=== PATIENT | female | born 1990 | race Caucasian/White ===

== ENCOUNTER 2017-04-12 12:48 | Emergency (ER) | payer MEDICAID ==
[~2017-04-12] VITALS: Ht 170.2 cm; Wt 57.3 kg
[~2017-04-12 12:48] MED LIST: AMOXICILLIN 50500 MG PO; AMOXICILLIN 8751 TAB PO; CARAFATE 1GM1 G PO; CIPRO 500MG TA500 MG PO; COLACE 100100 MG/CAP PO; FLAGYL 250250 MG/TAB PO; GUAIATUSSIN AC120 ML PO; IBU600 MG PO; IBU800 M1 PO; MAKENA250 MG/ML IM; MARNATAL-F1 CAP PO; METRONIDAZOLE PO; NAPROSYN500 MG PO; NKDA; NO HOME MEDICATIONS; NORCO 325 MG-51 TAB PO; NORCO 325 MG-7.1 TAB PO; ORTHO TRI-CYCLE1 TAB PO; PERCOCET 325 MG1 TA2 PO; PHENERGAN 25 TA25 MG PO; PRENATAL VITAMI1 TA5 PO; PRENATAL1 TA1 PO; PROTONIX 40MG T40 MG PO; PYRIDIUM200 M1 PO; TETRACYCLINE PO; TUSS PO; ULTRAM 50MG TAB50 MG PO; VALTREX 50500 MG/TAB PO; ZANTAC150 MG PO; ZITHROMAX Z PA250 MG PO; ZOFRAN ODT4 MG PO; [UNRECOGNIZED DRUG - OTHER]; [UNRECOGNIZED DRUG - OTHER] PO
[2017-04-12 12:49] VITALS: BP 122/78; TEMP 98.6
[2017-04-12] MEDS ORDERED: PREDNISONE20 MG PO (15:01)
[2017-04-12 15:14] VITALS: PULSE 96
== END 2017-04-12 15:14 | disposition home or self-care (01) ==
LOC: COL.ER 12:48
DX: J20.9 Acute bronchitis, unspecified (principal); F17.210 Nicotine dependence, cigarettes, uncomplicated
CPT/HCPCS: J1885

== ENCOUNTER 2017-08-03 18:20 | Emergency (ER) | payer MEDICAID ==
[~2017-08-03] VITALS: Ht 170.2 cm; Wt 56.8 kg
[~2017-08-03 18:20] MED LIST changes: +PREDNISONE20 MG PO
[2017-08-03 18:24] VITALS: BP 109/65; TEMP 99.1
[2017-08-03] MEDS ORDERED: ZITHROMAX Z PA250 MG PO (18:47)
[2017-08-03] MEDS ORDERED: PROAIR HFA0.09 MG/AC IH (18:47)
[2017-08-03 18:51] VITALS: PULSE 95
== END 2017-08-03 18:50 | disposition home or self-care (01) ==
LOC: COL.ER 18:20
DX: J40 Bronchitis, not specified as acute or chronic (principal); F17.210 Nicotine dependence, cigarettes, uncomplicated

== ENCOUNTER 2017-09-27 16:29 | Emergency (ER) | payer MEDICAID ==
[~2017-09-27] VITALS: Ht 167.6 cm; Wt 59.0 kg
[~2017-09-27 16:29] MED LIST changes: +PROAIR HFA0.09 MG/AC IH
[2017-09-27 16:31] VITALS: BP 107/72; TEMP 98.5
[2017-09-27] MEDS ORDERED: FLEXERIL 1010 MG/TAB PO (17:16)
[2017-09-27 17:39] VITALS: PULSE 70
== END 2017-09-27 17:40 | disposition home or self-care (01) ==
LOC: COL.ER 16:29
DX: R07.89 Other chest pain (principal); F17.210 Nicotine dependence, cigarettes, uncomplicated
CPT/HCPCS: J1885

== ENCOUNTER 2018-06-22 15:14 | Emergency (ER) | payer MEDICAID ==
[~2018-06-22] VITALS: Ht 167.6 cm; Wt 58.2 kg
[~2018-06-22 15:14] MED LIST changes: +FLEXERIL 1010 MG/TAB PO
[2018-06-22 15:18] VITALS: TEMP 99.1
[2018-06-22 15:30] LABS: COLLECTION METHOD CLEAN CATCH
[2018-06-22 15:41] LABS: MUCOUS Present /lpf; PH 5 (5-8); SQUAMOUS EPITHELIAL 0-2 /hpf; URINE APPEARANCE Clear; URINE BACTERIA None Seen /hpf; URINE BILIRUBIN Negative (NEGATIVE); URINE BLOOD Negative (NEGATIVE); URINE COLOR Yellow; URINE GLUCOSE Negative (NEGATIVE); URINE KETONE Negative (NEGATIVE); URINE LEUKOCYTE ESTERASE Negative (NEGATIVE); URINE NITRATE Negative (NEGATIVE); URINE PROTEIN(semi-quant) Negative (NEGATIVE); URINE RBC 0-2 /hpf
[2018-06-22 17:36] LABS: BASO % 0.5 % (0.0-2.0); EOS # 0.2 (0.0-0.7); EOS % 2.9 % (0-4.0); GRAN # 3.5 (1.4-6.5); GRAN % 45.1 % (42.2-75.2); HEMATOCRIT 38.2 % (37.0-47.0); HEMOGLOBIN 13.2 g/dl (12.5-16.0); LYMPH # 3.4 (1.2-3.4); MEAN CELL VOLUME 86 fl (80.0-100.0); MEAN CORPUSCULAR HEMOGLOBIN 30 pg (27.0-31.0); MEAN CORPUSCULAR HGB CONC 35 g/dl (33.0-37.0); MONO # 0.7 (0.1-0.6); MONO % 8.4 % (1.7-9.3); PLATELET COUNT 191 K/mm3 (130-400); RED BLOOD COUNT 4.44 M/mm3 (4.10-5.30); REDCELL DISTRIBUTION WIDTH-CV 12.3 % (11.5-14.5)
[2018-06-22 17:45] LABS: ALANINE AMINOTRANSFERASE 23 U/L (9-52); ALKALINE PHOSPHATASE 29 U/L (50-136); ANION GAP 10 mmol/L (7-16); AST,SGOT 15 U/L (15-37); BILIRUBIN,TOTAL 0.2 mg/dL (0.0-1.0); BLOOD UREA NITROGEN 15 mg/dL (7-17); CALCIUM 8.5 mg/dL (8.4-10.2); CARBON DIOXIDE 27 mmol/L (22-30); CHLORIDE 103 mmol/L (98-107); CREATININE, serum 0.72 mg/dL (0.52-1.25); GLUCOSE 76 mg/dL (74-106); SODIUM 140 mmol/L (137-145); TOTAL PROTEIN 7.1 gm/dL (6.4-8.2)
[2018-06-22 17:54] LABS: C-REACTIVE PROTEIN < 0.5 mg/dL (0.0-0.9)
[2018-06-22] MEDS ORDERED: FLAGYL500 MG PO (18:55)
[2018-06-22] MEDS ORDERED: ULTRAM 50MG TAB50 MG PO (18:55)
[2018-06-22 19:16] VITALS: BP 121/67; PULSE 75
[2018-06-23] MEDS ORDERED: ZITHROMAX 250M250 MG PO (06:59)
== END 2018-06-22 19:16 | disposition home or self-care (01) ==
LOC: COL.ER 15:14
PROVIDERS: Emergency Medicine; Nurse Practitioner
DX: R10.31 Right lower quadrant pain (principal); N76.0 Acute vaginitis; F17.210 Nicotine dependence, cigarettes, uncomplicated
CPT/HCPCS: J1170; J7030

== ENCOUNTER 2018-07-11 16:54 | Emergency (ER) | payer MEDICAID ==
[~2018-07-11] VITALS: Ht 170.2 cm; Wt 57.7 kg
[~2018-07-11 16:54] MED LIST changes: +FLAGYL500 MG PO; +ZITHROMAX 250M250 MG PO
[2018-07-11 17:09] VITALS: TEMP 99.1
[2018-07-11 18:38] LABS: COLLECTION METHOD CLEAN CATCH
[2018-07-11 18:41] LABS: BASO % 0.4 % (0.0-2.0); EOS # 0.2 (0.0-0.7); EOS % 2.4 % (0-4.0); GRAN # 2.8 (1.4-6.5); GRAN % 40.5 % (42.2-75.2); HEMATOCRIT 37.5 % (37.0-47.0); HEMOGLOBIN 13.1 g/dl (12.5-16.0); LYMPH # 3.4 (1.2-3.4); LYMPH % 48.5 % (20.0-51.0); MEAN CELL VOLUME 86 fl (80.0-100.0); MEAN CORPUSCULAR HEMOGLOBIN 30 pg (27.0-31.0); MEAN CORPUSCULAR HGB CONC 35 g/dl (33.0-37.0); MEAN PLATELET VOLUME 10.2 fl (7.4-10.4); MONO # 0.6 (0.1-0.6); MONO % 7.9 % (1.7-9.3); PLATELET COUNT 202 K/mm3 (130-400); RED BLOOD COUNT 4.36 M/mm3 (4.10-5.30); REDCELL DISTRIBUTION WIDTH-CV 12.2 % (11.5-14.5)
[2018-07-11 18:46] LABS: MUCOUS Present /lpf; PH 5 (5-8); SQUAMOUS EPITHELIAL 0-2 /hpf; URINE APPEARANCE Clear; URINE BACTERIA None Seen /hpf; URINE BILIRUBIN Negative (NEGATIVE); URINE BLOOD Negative (NEGATIVE); URINE COLOR Yellow; URINE GLUCOSE Negative (NEGATIVE); URINE KETONE Negative (NEGATIVE); URINE LEUKOCYTE ESTERASE Negative (NEGATIVE); URINE NITRATE Negative (NEGATIVE); URINE PROTEIN(semi-quant) Negative (NEGATIVE); URINE RBC 0-2 /hpf; URINE UROBILINOGEN >=4.0 mg/dL (NEGATIVE)
[2018-07-11 18:52] LABS: ALBUMIN 4.1 gm/dL (3.5-5.0); BILIRUBIN,TOTAL 0.4 mg/dL (0.0-1.0); C-REACTIVE PROTEIN 0.5 mg/dL (0.0-0.9); CALCIUM 8.9 mg/dL (8.4-10.2); CREATININE, serum 0.81 mg/dL (0.52-1.25); POTASSIUM 3.9 mmol/L (3.4-5.0); TOTAL PROTEIN 7.3 gm/dL (6.4-8.2)
[2018-07-11 20:46] VITALS: BP 103/75; PULSE 60
== END 2018-07-11 20:48 | disposition home or self-care (01) ==
LOC: COL.ER 16:54
PROVIDERS: Family Medicine
DX: R10.31 Right lower quadrant pain (principal)
CPT/HCPCS: J7030; Q9967

== ENCOUNTER 2019-01-06 09:02 | Emergency (ER) | payer MEDICAID ==
[~2019-01-06] VITALS: Ht 170.2 cm; Wt 63.6 kg
[2019-01-06 09:11] VITALS: BP 122/60
[2019-01-06 11:20] VITALS: PULSE 65; TEMP 98.5
== END 2019-01-06 11:20 | disposition home or self-care (01) ==
LOC: COL.ER 09:02
DX: J06.9 Acute upper respiratory infection, unspecified (principal); Z87.891 Personal history of nicotine dependence

== ENCOUNTER 2019-11-18 16:17 | Emergency (ER) | payer MEDICAID ==
[~2019-11-18] VITALS: Ht 170.2 cm; Wt 61.4 kg
[2019-11-18 16:28] VITALS: BP 114/55; PULSE 69
[2019-11-18] MEDS ORDERED: AMOXICILLIN 50500 MG PO (16:58)
[2019-11-18 18:13] VITALS: TEMP 97.8
== END 2019-11-18 17:55 | disposition home or self-care (01) ==
LOC: COL.ER 16:17
DX: J32.9 Chronic sinusitis, unspecified (principal); Z87.891 Personal history of nicotine dependence; Z88.1 Allergy status to other antibiotic agents; Z88.8 Allergy status to other drugs, medicaments and biological substances

== ENCOUNTER 2019-12-02 05:51 | Emergency (ER) | payer MEDICAID ==
[~2019-12-02] VITALS: Ht 170.2 cm; Wt 65.9 kg
[2019-12-02 05:57] VITALS: BP 113/76; PULSE 111
[2019-12-02 06:41] LABS: BASO % 0.3 % (0.0-2.0); EOS % 0.3 % (0-4.0); GRAN # 2.4 (1.4-6.5); GRAN % 70.9 % (42.2-75.2); HEMATOCRIT 37.4 % (37.0-47.0); HEMOGLOBIN 12.9 g/dl (12.5-16.0); LYMPH # 0.5 (1.2-3.4); LYMPH % 13.5 % (20.0-51.0); MEAN CELL VOLUME 85 fl (80.0-100.0); MEAN CORPUSCULAR HEMOGLOBIN 30 pg (27.0-31.0); MEAN CORPUSCULAR HGB CONC 35 g/dl (33.0-37.0); MEAN PLATELET VOLUME 9.9 fl (7.4-10.4); MONO # 0.5 (0.1-0.6); MONO % 14.7 % (1.7-9.3); PLATELET COUNT 167 K/mm3 (130-400); RED BLOOD COUNT 4.38 M/mm3 (4.10-5.30); REDCELL DISTRIBUTION WIDTH-CV 11.9 % (11.5-14.5)
[2019-12-02 06:53] LABS: ALANINE AMINOTRANSFERASE 17 U/L (9-52); ALBUMIN 4.1 gm/dL (3.5-5.0); ALKALINE PHOSPHATASE 45 U/L (50-136); ANION GAP 9 mmol/L (7-16); AST,SGOT 19 U/L (15-37); BILIRUBIN,TOTAL 0.4 mg/dL (0.0-1.0); BLOOD UREA NITROGEN 9 mg/dL (7-17); CALCIUM 8.5 mg/dL (8.4-10.2); CARBON DIOXIDE 21 mmol/L (22-30); CHLORIDE 108 mmol/L (98-107); CREATININE, serum 0.61 (0.52-1.25); GLUCOSE 94 mg/dL (74-106); LIPASE 56 U/L (23-300); POTASSIUM 3.8 mmol/L (3.4-5.0); SODIUM 138 mmol/L (137-145); TOTAL PROTEIN 7.3 gm/dL (6.4-8.2)
[2019-12-02 06:55] LABS: C-REACTIVE PROTEIN < 0.5 mg/dL (0.0-0.9)
[2019-12-02] MEDS ORDERED: TAMIFLU 75MG75 MG PO (07:11)
[2019-12-02 07:16] LABS: COLLECTION METHOD CLEAN CATCH
[2019-12-02 07:21] LABS: MUCOUS Present /lpf; PH 6 (5-8); SQUAMOUS EPITHELIAL 0-2 /hpf; URINE APPEARANCE Clear; URINE BACTERIA Rare /hpf; URINE BILIRUBIN Negative (NEGATIVE); URINE BLOOD Negative (NEGATIVE); URINE COLOR Yellow; URINE GLUCOSE Negative (NEGATIVE); URINE KETONE 1+ (NEGATIVE); URINE LEUKOCYTE ESTERASE Negative (NEGATIVE); URINE NITRATE Negative (NEGATIVE); URINE PROTEIN(semi-quant) Negative (NEGATIVE); URINE RBC 0-2 /hpf; URINE UROBILINOGEN >=4.0 mg/dL (NEGATIVE)
[2019-12-02 07:54] VITALS: TEMP 98.6
== END 2019-12-02 07:55 | disposition home or self-care (01) ==
LOC: COL.ER 05:51
PROVIDERS: Emergency Medicine
DX: J11.1 Influenza due to unidentified influenza virus with other respiratory manifestations (principal)
CPT/HCPCS: J7030

== ENCOUNTER → 2020-03-03 | Emergency (ER) | payer MEDICAID ==
[~2020-03-03] VITALS: Ht 170.2 cm; Wt 68.2 kg
[~2020-03-03] MED LIST changes: +MACROBID 1100 MG/CAP PO; +TAMIFLU 75MG75 MG PO
[2020-03-03 10:30] VITALS: BP 116/72; TEMP 99.3
[2020-03-03 11:05] LABS: COLLECTION METHOD CLEAN CATCH
[2020-03-03 11:08] LABS: BASO % 0.1 % (0.0-2.0); EOS % 0.4 % (0-4.0); GRAN # 5.7 (1.4-6.5); GRAN % 68.6 % (42.2-75.2); HEMATOCRIT 40.2 % (37.0-47.0); HEMOGLOBIN 14.2 g/dl (12.5-16.0); LYMPH % 23.6 % (20.0-51.0); MEAN CELL VOLUME 84 fl (80.0-100.0); MEAN CORPUSCULAR HEMOGLOBIN 30 pg (27.0-31.0); MEAN CORPUSCULAR HGB CONC 35 g/dl (33.0-37.0); MEAN PLATELET VOLUME 9.9 fl (7.4-10.4); MONO # 0.6 (0.1-0.6); MONO % 7.2 % (1.7-9.3); PLATELET COUNT 235 K/mm3 (130-400); RED BLOOD COUNT 4.81 M/mm3 (4.10-5.30); REDCELL DISTRIBUTION WIDTH-CV 11.7 % (11.5-14.5)
[2020-03-03 11:19] LABS: ALBUMIN 4.8 gm/dL (3.5-5.0); BILIRUBIN,TOTAL 0.7 mg/dL (0.0-1.0); CALCIUM 9.6 mg/dL (8.4-10.2); CREATININE, serum 0.58 (0.52-1.25); POTASSIUM 3.7 mmol/L (3.4-5.0); TOTAL PROTEIN 8.7 gm/dL (6.4-8.2)
[2020-03-03 11:24] LABS: MUCOUS Present /lpf; PH 5 (5-8); URINE APPEARANCE Cloudy; URINE BACTERIA Rare /hpf; URINE BILIRUBIN Negative (NEGATIVE); URINE BLOOD 3+ (NEGATIVE); URINE COLOR Yellow; URINE GLUCOSE Negative (NEGATIVE); URINE KETONE 1+ (NEGATIVE); URINE LEUKOCYTE ESTERASE 1+ (NEGATIVE); URINE NITRATE Negative (NEGATIVE); URINE PROTEIN(semi-quant) Negative (NEGATIVE); URINE UROBILINOGEN Negative (NEGATIVE)
[2020-03-03 13:13] VITALS: PULSE 80
== END ==
LOC: COL.ER 10:24
PROVIDERS: Nurse Practitioner
DX: O20.0 Threatened abortion (principal); O23.41 Unspecified infection of urinary tract in pregnancy, first trimester; Z3A.01 Less than 8 weeks gestation of pregnancy

== ENCOUNTER 2020-05-10 07:48 | Emergency (ER) | payer MEDICAID ==
[~2020-05-10] VITALS: Ht 170.2 cm; Wt 68.2 kg
[2020-05-10 07:54] VITALS: TEMP 98.1
[2020-05-10 08:37] LABS: COLLECTION METHOD CLEAN CATCH
[2020-05-10 08:46] LABS: MUCOUS Present /lpf; PH 8 (5-8); SQUAMOUS EPITHELIAL 0-2 /hpf; URINE APPEARANCE Clear; URINE BACTERIA Rare /hpf; URINE BILIRUBIN Negative (NEGATIVE); URINE BLOOD Negative (NEGATIVE); URINE COLOR Yellow; URINE GLUCOSE Negative (NEGATIVE); URINE KETONE Negative (NEGATIVE); URINE LEUKOCYTE ESTERASE Negative (NEGATIVE); URINE NITRATE Negative (NEGATIVE); URINE PROTEIN(semi-quant) Negative (NEGATIVE); URINE RBC 0-2 /hpf; URINE UROBILINOGEN Negative (NEGATIVE)
[2020-05-10 10:47] VITALS: BP 100/60; PULSE 88
== END 2020-05-10 10:35 | disposition home or self-care (01) ==
LOC: COL.ER 07:48
PROVIDERS: Physician Assistant
DX: O26.892 Other specified pregnancy related conditions, second trimester (principal); R51 Headache; Z3A.17 17 weeks gestation of pregnancy
CPT/HCPCS: J1200; J7030

== ENCOUNTER 2020-08-13 17:37 | Outpatient (CLI) | payer MEDICAID ==
[~2020-08-13] VITALS: Ht 167.6 cm; Wt 78.6 kg
[2020-08-13 17:39] VITALS: BP 113/66; PULSE 89; TEMP 97.6
--- NOTE | 2020-08-13 17:43 | NUR ---
FHR tachycardia noted and movement noted on monitor. Patient denies feeling movement. Report to Dr. Murray that she was not feeling movement. Patient given juice.
--- NOTE | 2020-08-13 17:54 | NUR ---
Patient ambulatory to unit accompanied by sister. Patient came via wheelchair and seems to be uncomfortable. Patient states she has been shelbie since 0900. Patient denies any leaking of fluid or vaginal bleeding but states she is not feeling the baby move at much today. FHR and Contraction monitors placed and explained. Patient has hx of labor and deliveries. SVE by Bernadine Geronimo RN /. Assessment completed. Dr. Murray at nurses station and reviews strip since patient arrives. Order to continue with routine labor check.
[2020-08-13 18:15] VITALS: BP 111/61; PULSE 86
[2020-08-13 18:30] VITALS: BP 113/64; PULSE 93
[2020-08-13 19:00] VITALS: BP 127/72; PULSE 91
== END 2020-08-13 19:10 | disposition home or self-care (01) ==
LOC: LDRO 17:37
DX: O62.9 Abnormality of forces of labor, unspecified (principal); O60.03 Preterm labor without delivery, third trimester; Z3A.31 31 weeks gestation of pregnancy; Z87.891 Personal history of nicotine dependence

== ENCOUNTER 2020-09-11 17:16 | Outpatient (CLI) | payer MEDICAID ==
[~2020-09-11] VITALS: Ht 167.6 cm; Wt 83.6 kg
--- NOTE | 2020-09-11 17:20 | NUR ---
1720- 35.3, G5L3 patient arrives on unit from clinic for extended monitoring, serial blood pressure, and lab. Patient ambulatory to LDR6. Oriented to room and instructerd to luiza kendall. 1725- This RN at bedside. EFM explained and placed. Patient reports irregular contractions, and decreased movement. Denies any LOF, or VB. VS obtained. Assessment completed. 1740- Patient up to bathroom to void. Clean cath UA collected. 1745- SVE by this RN . See flow chart. 1755- FHR tracing intermittently. EFM adjusted. 1805- Lab at bedside.
[2020-09-11 17:33] VITALS: BP 126/84; PULSE 83; TEMP 98.8
[2020-09-11 17:51] LABS: COLLECTION METHOD CLEAN CATCH
[2020-09-11] MEDS ORDERED: PRENATAL TABLET PO (17:56)
[2020-09-11] MEDS ORDERED: SLOW FE142 MG PO (17:57)
[2020-09-11 18:00] VITALS: BP 135/75; PULSE 75
[2020-09-11 18:02] LABS: MUCOUS Present /lpf; PH 5 (5-8); SQUAMOUS EPITHELIAL 0-2 /hpf; URINE APPEARANCE Clear; URINE BACTERIA None Seen /hpf; URINE BILIRUBIN Negative (NEGATIVE); URINE BLOOD Negative (NEGATIVE); URINE COLOR Yellow; URINE GLUCOSE Negative (NEGATIVE); URINE KETONE Negative (NEGATIVE); URINE LEUKOCYTE ESTERASE Negative (NEGATIVE); URINE NITRATE Negative (NEGATIVE); URINE PROTEIN(semi-quant) Negative (NEGATIVE); URINE RBC 0-2 /hpf; URINE UROBILINOGEN Negative (NEGATIVE); URINE WBC 0-2 /hpf
[2020-09-11] MEDS ORDERED: MAKENA250 MG/1 M IM (18:05)
[2020-09-11 18:22] LABS: BASO % 0.1 % (0.0-2.0); EOS % 0.3 % (0-4.0); GRAN # 5.7 (1.4-6.5); GRAN % 61.6 % (42.2-75.2); HEMOGLOBIN 10.6 g/dl (12.5-16.0); LYMPH # 2.7 (1.2-3.4); LYMPH % 28.9 % (20.0-51.0); MEAN CELL VOLUME 86 fl (80.0-100.0); MEAN CORPUSCULAR HEMOGLOBIN 29 pg (27.0-31.0); MEAN CORPUSCULAR HGB CONC 33 g/dl (33.0-37.0); MEAN PLATELET VOLUME 11.3 fl (7.4-10.4); MONO # 0.8 (0.1-0.6); MONO % 8.8 % (1.7-9.3); PLATELET COUNT 201 K/mm3 (130-400); RED BLOOD COUNT 3.71 M/mm3 (4.10-5.30)
[2020-09-11 18:29] LABS: ALBUMIN 3.3 gm/dL (3.5-5.0); BILIRUBIN,TOTAL 0.3 mg/dL (0.0-1.0); CALCIUM 8.4 mg/dL (8.4-10.2); CREATININE, serum 0.56 (0.52-1.25); POTASSIUM 3.7 mmol/L (3.4-5.0); TOTAL PROTEIN 6.6 gm/dL (6.4-8.2)
[2020-09-11 18:30] VITALS: BP 121/74; PULSE 83
[2020-09-11 18:45] VITALS: BP 116/76; PULSE 80
--- NOTE | 2020-09-11 18:52 | NUR ---
1845- PT UP TO BATHROOM. 1849- DR. ROB NOTIFIED OF PT ARRIVAL AND LABS, SEE PHYSICIAN NOTIFICATION. PT MAY DC HOME PER DR. ROB. 1850- PT STATES SHE IS FEELING SOME OF HER CONTRACTIONS. SVE RECHECKED AND WAS UNCHANGED. 1851- PT CHANGING INTO STREET [employer] WHILE DISCHARGE PAPERWORK PREPARED.
--- NOTE | 2020-09-11 19:08 | NUR ---
DISCHARGE INSTRUCTIONS REVIEWED WITH PT, QUESTIONS ENCOURAGED AND ANSWERED, UNDERSTANDING VERBALIZED. PT OFF THE UNIT AMBULATORY FOR HOME.
== END 2020-09-11 19:08 | disposition home or self-care (01) ==
LOC: LDRO 17:16 → LDR 17:16 → LDRO 19:08
PROVIDERS: Obstetrics & Gynecology
DX: O62.9 Abnormality of forces of labor, unspecified (principal); O13.3 Gestational [pregnancy-induced] hypertension without significant proteinuria, third trimester; O36.8130 Decreased fetal movements, third trimester, not applicable or unspecified; Z3A.35 35 weeks gestation of pregnancy; Z91.410 Personal history of adult physical and sexual abuse
CPT/HCPCS: OP

== ENCOUNTER 2020-09-27 11:16 | Inpatient (IN) | payer MEDICAID ==
[2020-09-27] VITALS (19 sets, daily range): BP systolic 128–170; BP diastolic 65–99; PULSE 53–81; TEMP 97.7–99.2
[~2020-09-27] VITALS: Ht 170.2 cm; Wt 85.9 kg
[~2020-09-27 11:16] MED LIST changes: +MAKENA250 MG/1 M IM; +PRENATAL TABLET PO; +SLOW FE142 MG PO
--- NOTE | 2020-09-27 11:24 | NUR ---
1124-G5L3 [address] Mcarthur to LR 4 from office after SVE in office , MARGARITA. Patient with history of labor x3. Has been recieving Sandra Inj for this. 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 BP elevated on office visit 152/100, 130's/80's here. BLE with +1 edema. SVE 2 per this RN at this time. 1152-Updated Dr. Murray, see MD notification. 1230-Consents reviewed and signed, IV to left forearm, blood collected and sent to lab per MD orders. LR infsuing, see EMAR. Updated on plan of care and safety.
[2020-09-27] MEDS ORDERED: ZOVIRAX400 MG (11:44)
--- NOTE | 2020-09-27 12:36 | NUR ---
Patient refuses Covid swab at this time.
[2020-09-27 12:50] LABS: COLLECTION METHOD CLEAN CATCH
[2020-09-27 12:58] LABS: BASO % 0.3 % (0.0-2.0); EOS % 0.1 % (0-4.0); GRAN # 4.8 (1.4-6.5); GRAN % 66.4 % (42.2-75.2); HEMOGLOBIN 12.6 g/dl (12.5-16.0); LYMPH # 1.9 (1.2-3.4); LYMPH % 26.5 % (20.0-51.0); MEAN CELL VOLUME 84 fl (80.0-100.0); MEAN CORPUSCULAR HEMOGLOBIN 28 pg (27.0-31.0); MEAN CORPUSCULAR HGB CONC 33 g/dl (33.0-37.0); MEAN PLATELET VOLUME 11.1 fl (7.4-10.4); MONO # 0.5 (0.1-0.6); MONO % 6.4 % (1.7-9.3); PLATELET COUNT 186 K/mm3 (130-400); RED BLOOD COUNT 4.52 M/mm3 (4.10-5.30)
[2020-09-27 13:03] LABS: ALBUMIN 3.4 gm/dL (3.5-5.0); BILIRUBIN,TOTAL 0.4 mg/dL (0.0-1.0); CALCIUM 8.4 mg/dL (8.4-10.2); CREATININE, serum 0.6 (0.52-1.25); POTASSIUM 3.8 mmol/L (3.4-5.0); TOTAL PROTEIN 6.5 gm/dL (6.4-8.2)
[2020-09-27 13:22] LABS: MUCOUS Present /lpf; PH 6 (5-8); SQUAMOUS EPITHELIAL 0-2 /hpf; URINE APPEARANCE Clear; URINE BACTERIA None Seen /hpf; URINE BILIRUBIN Negative (NEGATIVE); URINE BLOOD Negative (NEGATIVE); URINE COLOR Amber; URINE GLUCOSE Negative (NEGATIVE); URINE KETONE Trace (NEGATIVE); URINE LEUKOCYTE ESTERASE Negative (NEGATIVE); URINE NITRATE Negative (NEGATIVE); URINE PROTEIN(semi-quant) 2+ (NEGATIVE); URINE RBC 0-2 /hpf; URINE UROBILINOGEN Negative (NEGATIVE)
--- NOTE | 2020-09-27 14:20 | NUR ---
1420-Patient up to bathroom. Returns to bed. Roles on unit. Bedside sono by yessi WILSON confirmed. Repositioned sarai. Patient conintues to report managing pain well without pain medication. FHR baseline 115bpm to 120bpm moderate variability. Contractions palpate firm. BOWI.
--- NOTE | 2020-09-27 15:45 | NUR ---
1545-Requests epidrual. JENNIFER Ferrell notified. Patient starting to be unable to control pain with breathing. Reports feeling pushy. 1600-TERENCE Moe checks patient, 7/+1. Patient continues to desire epidural. JENNIFER Ferrell to room. Patient unable to sit still and rolling in bed with pain. This RN encouraging patient to breath and coachingn through contractions. 1605- requested for delivery. 1609-Dr. Murray to room. Patient set up for delivery. 1613-Patient pushes with contraction. Spontaneous delivery of viable female infant head immediately followed by body, assisted by Dr. Murray. nares and mouth suctioned and placed on mothers abdomen. Care of infant assumed by TERENCE Prado. Cord clamped x2 and cut by Sister of patient. Apgars 8/9/9. 1619-Spontaneous delivery of intact placenta by MD. Fundal massage firm. Pitocin bolus per MD order and protocol. EBL 100ml, Lochia WNL. Perineum intact. Lily care provided, updatedon safety and plan of care.
--- NOTE | 2020-09-27 18:00 | NUR ---
Patient easily ambulates to bathroom. Voids 350ml Clear urine. Lily care assited. Ambulates to room 216. Oriented to room and updated on plan of care.
[2020-09-28] VITALS: BP 132/79; PULSE 58; TEMP 98.8
[2020-09-28 04:10] VITALS: BP 118/87; PULSE 69; TEMP 97.6
--- NOTE | 2020-09-28 08:00 | NUR ---
Rests in bed, alert, baby. Request pain medication. Ibuprofen 600 mg given per request and as ordered.
[2020-09-28 08:30] VITALS: BP 116/68; PULSE 81; TEMP 98.9
[2020-09-28] MEDS ORDERED: IBU600 MG PO (10:22)
[2020-09-28 11:10] VITALS: BP 124/77; PULSE 60; TEMP 98.6
--- NOTE | 2020-09-28 11:15 | NUR ---
Rests in bed, alert. Percocet 5/325 mg one given per request and as ordered.
[2020-09-28 16:15] VITALS: BP 136/79; PULSE 59; TEMP 98.8
--- NOTE | 2020-09-28 18:00 | NUR ---
Rests in bed, alert. Discharge instructions given, verbalizes understanding.
== END 2020-09-28 18:10 | disposition home or self-care (01) | DRG 807 ==
LOC: LDRO 11:16 → LDR 11:17 → OB 18:00
PROVIDERS: ADMIT Obstetrics & Gynecology
PROC: 10E0XZZ Delivery of Products of Conception, External Approach (ICD-10-PCS; principal; 2020-09-27)
PROC: 10907ZC Drainage of Amniotic Fluid, Therapeutic from Products of Conception, Via Natural or Artificial Opening (ICD-10-PCS; 2020-09-27)
PROC: 3E033VJ Introduction of Other Hormone into Peripheral Vein, Percutaneous Approach (ICD-10-PCS; 2020-09-27)
DX: O99.344 Other mental disorders complicating childbirth (principal); Z37.0 Single live birth; Z3A.40 40 weeks gestation of pregnancy; F32.9 Major depressive disorder, single episode, unspecified
CPT/HCPCS: J2590; J7120